=== PATIENT | male | born 1990 | race American Indian/Alaskan Native ===

== ENCOUNTER 2018-06-13 01:30 | Inpatient (IN) | payer MEDICAID, OTHER ==
[2018-06-13 02:19] LABS: Basophils # (Auto) 0.1 K/mm3 (0.0-0.1); Eosinophils # (Auto) 0.3 K/mm3 (0.0-0.4); Eosinophils % (Auto) 3.7 % (0.0-4.3); Monocytes # (Auto) 0.5 K/mm3 (0.0-0.8); Monocytes % (Auto) 6.7 % (0.0-7.3)
[2018-06-13 02:25] LABS: Bilirubin,Urine NEG (Negative); Blood,Urine NEG (Negative); Color,Urine Straw (Yellow); Protein,Urine <15 mg/dL mg/dL (Negative); Urobilinogen,Urine < 2.0 mg/dL (<2.0)
[2018-06-13 02:36] LABS: Hemolysis Index 153
[2018-06-13 02:45] LABS: Blood Urea Nitrogen 13 mg/dL (9-20)
[2018-06-13 03:01] LABS: BUN/Creatinine Ratio 26
[2018-06-13] MEDS ORDERED: NACL 0.9% 1000 ML 1,000 ML IV ONE ×2 (03:06→04:12)
--- NOTE | 2018-06-13 03:19 | Emergency Department Report ---
HPI - General Chief Complaint: Hyperglycemia Time Seen by Provider: 06/13/18 03:00 - HPI HPI: Room 2 The patient is a 27-year-old male presenting with a chief complaint of polyuria and polydipsia. The patient states he experienced polyuria and polydipsia for the past 3-4 days so his grandmother decided to check his blood sugar. The patient's blood sugar was found to be elevated at 589 yesterday. Patient denies any recent steroid use. Patient complains of just feeling weak. Patient states his last meal occurred at 10:00 this morning Location: [See above] Duration: 3-4 days Quality: Weakness Severity: Moderate Modifying factors: [see above] Context: [see above] Mode of transportation: [not driving] ED Past Medical Hx - Past Medical History Previous Medical History?: No - Surgical History Past Surgical History?: No - Family History Family history: no significant - Social History Smoking Status: Current Every Day Smoker Substance Use Type: None (denies illicit drug use), Alcohol (occasional) - Medications Home Medications: Home Medications Medication Instructions Recorded Confirmed Last Taken Type No Known Home Medications [No 06/13/18 06/13/18 Unknown History Reported Home Medications] ED Review of Systems ROS: Stated complaint: BLOOD SUGAR HIGH/BREAKOUT ON ARM/CHEST/LEGS Other details as noted in HPI Constitutional: weakness Eyes: denies: eye pain ENT: denies: throat pain Respiratory: no symptoms reported Cardiovascular: denies: chest pain Endocrine: increased thirst, increased urine Gastrointestinal: denies: abdominal pain Genitourinary: denies: dysuria Musculoskeletal: denies: back pain Neurological: headache Physical Exam - Physical Exam Vital Signs: Vital Signs 06/13/18 01:42 Temperature 97.5 F L Pulse Rate 85 Respiratory 16 Rate Blood Pressure 160/90 O2 Sat by Pulse 96 Oximetry Physical Exam: GENERAL: The patient is well-developed well-nourished male lying on stretcher not appearing to be in acute distress. [] HEENT: Normocephalic. Atraumatic. Extraocular motions are intact. Patient has moist mucous membranes. NECK: Supple. Trachea midline CHEST/LUNGS: Clear to auscultation. There is no respiratory distress noted. HEART/CARDIOVASCULAR: Regular. There is no tachycardia. There is no gallop rub or murmur. ABDOMEN: Abdomen is soft, nontender. Patient has normal bowel sounds. There is no abdominal distention. SKIN: There is no rash. There is no edema. There is no diaphoresis. NEURO: The patient is awake, alert, and oriented. The patient is cooperative. The patient has normal speech MUSCULOSKELETAL: There is no evidence of acute injury. ED Course Vital Signs 06/13/18 01:42 Temperature 97.5 F L Pulse Rate 85 Respiratory 16 Rate Blood Pressure 160/90 O2 Sat by Pulse 96 Oximetry ED Medical Decision Making - Lab Data Result diagrams: 06/13/18 02:06 06/13/18 02:06 Laboratory Tests 06/13/18 06/13/18 06/13/18 01:40 02:00 02:06 WBC 6.7 RBC 5.00 Hgb 15.1 Hct 39.9 MCV 80 L MCH 30 MCHC 38 H* RDW 13.1 L Plt Count 184 Lymph % (Auto) 37.5 H [place] % (Auto) 6.7 Eos % (Auto) 3.7 Baso % (Auto) 1.2 Lymph # 2.5 [place] # 0.5 Eos # 0.3 Baso # 0.1 Seg Neutrophils % 48.4 Seg Neutrophils # 3.4 VBG pH Sodium Potassium Chloride Carbon Dioxide Anion Gap BUN Creatinine Estimated GFR BUN/Creatinine Ratio Glucose POC Glucose 341 H Calcium Total Bilirubin Direct Bilirubin Indirect Bilirubin AST ALT Alkaline Phosphatase Total Protein Albumin Albumin/Globulin Ratio Urine Color Straw Urine Turbidity Clear Urine pH 6.0 Ur Specific [place] 1.027 Urine Protein <15 mg/dl Urine Glucose (UA) >=500 Urine Ketones Tr Urine Blood Neg Urine Nitrite Neg Urine Bilirubin Neg Urine Urobilinogen < 2.0 Ur Leukocyte Esterase Neg Urine WBC (Auto) 1.0 Urine RBC (Auto) 2.0 U Epithel Cells (Auto) < 1.0 06/13/18 06/13/18 06/13/18 02:06 02:06 02:06 WBC RBC Hgb Hct MCV MCH MCHC RDW Plt Count Lymph % (Auto) [place] % (Auto) Eos % (Auto) Baso % (Auto) Lymph # [place] # Eos # Baso # Seg Neutrophils % Seg Neutrophils # VBG pH 7.359 Sodium 120 L Potassium 3.9 Chloride 84.0 L Carbon Dioxide 22 Anion Gap 18 BUN 13 Creatinine 0.5 L Estimated GFR > 60 BUN/Creatinine Ratio 26 Glucose 367 H POC Glucose Calcium 6.0 L Total Bilirubin 0.20 Direct Bilirubin 0.7 H Indirect Bilirubin -0.5 AST 5 ALT 43 Alkaline Phosphatase 114 Total Protein 6.3 Albumin 3.6 L Albumin/Globulin Ratio 1.3 Urine Color Urine Turbidity Urine pH Ur Specific [place] Urine Protein Urine Glucose (UA) Urine Ketones Urine Blood Urine Nitrite Urine Bilirubin Urine Urobilinogen Ur Leukocyte Esterase Urine WBC (Auto) Urine RBC (Auto) U Epithel Cells (Auto) 06/13/18 04:23 WBC RBC Hgb Hct MCV MCH MCHC RDW Plt Count Lymph % (Auto) [place] % (Auto) Eos % (Auto) Baso % (Auto) Lymph # [place] # Eos # Baso # Seg Neutrophils % Seg Neutrophils # VBG pH Sodium Potassium Chloride Carbon Dioxide Anion Gap BUN Creatinine Estimated GFR BUN/Creatinine Ratio Glucose POC Glucose 332 H Calcium Total Bilirubin Direct Bilirubin Indirect Bilirubin AST ALT Alkaline Phosphatase Total Protein Albumin Albumin/Globulin Ratio Urine Color Urine Turbidity Urine pH Ur Specific [place] Urine Protein Urine Glucose (UA) Urine Ketones Urine Blood Urine Nitrite Urine Bilirubin Urine Urobilinogen Ur Leukocyte Esterase Urine WBC (Auto) Urine RBC (Auto) U Epithel Cells (Auto) - Differential Diagnosis new-onset diabetes, DKA, dehydration Critical care attestation.: If time is entered above; I have spent that time in minutes in the direct care of this critically ill patient, excluding procedure time. ED Disposition Clinical Impression: Diabetes mellitus, new onset, Hyponatremia Disposition: OP ADMIT IP TO THIS HOSP Is pt being admited?: Yes Does the pt Need Aspirin: No Condition: Fair Instructions: Diabetes Mellitus Type 2 in Adults (ED) Time of Disposition: 06:05 (hospitalist paged (Dr. Patricia Morgan))
[2018-06-13 03:39] LABS: Albumin 3.6 g/dL (3.9-5); Bilirubin,Direct 0.7 mg/dL (0-0.2)
[2018-06-13 04:08] LABS: Mean Corpuscular Volume 80 fl (84-94); Platelet Count 184 K/mm3 (140-440); Red Cell Distribution Width 13.1 % (13.2-15.2)
[2018-06-13 04:32] LABS: Hematocrit 39.9 % (35.5-45.6); Hemoglobin 15.1 gm/dl (11.8-15.2)
[2018-06-13 04:36] LABS: Lymphocytes % (Auto) 37.5 % (13.4-35.0); Mean Corpuscular HGB Conc 38 % (32-34)
[2018-06-13 04:37] LABS: Basophils % (Auto) 1.2 % (0.0-1.8); Lymphocytes # (Auto) 2.5 K/mm3 (1.2-5.4)
[2018-06-13 05:39] LABS: Eosinophils # (Auto) 0.2 K/mm3 (0.0-0.4)
[2018-06-13 05:54] LABS: Hemolysis Index 157
[2018-06-13 06:04] LABS: BUN/Creatinine Ratio 70; Blood Urea Nitrogen 14 mg/dL (9-20)
[2018-06-13 06:09] LABS: Basophils # (Auto) 0.1 K/mm3 (0.0-0.1); Monocytes # (Auto) 0.5 K/mm3 (0.0-0.8); Monocytes % (Auto) 10.2 % (0.0-7.3)
[2018-06-13 06:28] LABS: Mean Corpuscular Volume 81 fl (84-94); Platelet Count 122 K/mm3 (140-440); Red Blood Count 3.05 M/mm3 (3.65-5.03)
[2018-06-13] MEDS ORDERED: TYLENOL PO PRN (06:28)
[2018-06-13] MEDS ORDERED: SODIUM CHLORIDE FLUSH SYRINGE 10 ML IV PRN (06:28)
[2018-06-13] MEDS ORDERED: D50W (25GM) Syringe IV PRN (06:28)
[2018-06-13] MEDS ORDERED: ZOFRAN IV PRN (06:28)
--- NOTE | 2018-06-13 06:28 | History and Physical Report ---
History of Present Illness Date of examination: 06/13/18 History of present illness: 27-year-old man with no medical problems comes emergency room with complaints of polyuria, polydipsia 4 days. Also complaining of generalized weakness, his grandmother took his sugar and it was 589, he came to the emergency room for f urther evaluation. Review of systems Constitutional: no weight loss, chills, fever Ears, eyes, nose, mouth and throat: no nasal congestion, no nasal discharge, no sinus pressure, no vision change, no red eye. Neck: No neck pain or rigidity. Cardiovascular: no palpitations, chest pain Respiratory: no cough, shortness of breath Gastrointestinal: no hematochezia, abdominal pain Genitourinary : no frequency , no hematuria Musculoskeletal: no joint swelling or muscle ache Integumentary: no rash, no pruritis Neurological: no parathesias, no focal weakness Endocrine: no cold or heat intolerance, no polyuria or polydipsia Hematologic/Lymphatic: no easy bruising, no easy bleeding, no gland swelling Allergic/Immunologic: no urticaria, no angioedema. PAST MEDICAL HISTORY: None PAST SURGICAL HISTORY: None SOCIAL HISTORY: Drinks areas and shots every other day, refused to quantify,no drugs,+ tobacco FAMILY HISTORY: Hypertension, diabetes Medications and Allergies Allergies Allergy/AdvReac Type Severity Reaction Status Date / Time Penicillins Allergy Hives Verified 06/13/18 01:51 Home Medications Medication Instructions Recorded Confirmed Last Taken Type No Known Home Medications [No 06/13/18 06/13/18 Unknown History Reported Home Medications] Exam - Physical Exam Narrative exam: General Apperance: The patient lying in bed, breathing comfortable HEENT: Normocephalic, atraumatic. Pupils equally round and reactive to light, EOMI, no sclericterus or JVD or thyromegaly or nodule. , no carotid bruit, mucous membranes dry, no exudate or erythema Heart: S1-S2, regular is rhythm Lungs: Clear to auscultation bilaterally, breathing comfortable Abdomen: Positive bowel sounds, soft, nontender, nondistended, no organomegaly Extremities: No edema cyanosis clubbing Skin: no rash, nodule, warm and dry Neuro: cranial nerves 2-12 intact, speech is fluent, motor/sensory intact - Constitutional Vitals: Temp Pulse Resp BP Pulse Ox 99.8 F H 85 25 H 131/70 95 06/13/18 05:42 06/13/18 03:31 06/13/18 03:31 06/13/18 03:31 06/13/18 03:31 Results - Labs CBC & Chem 7: 06/13/18 04:47 06/13/18 04:47 Labs: Abnormal lab results 06/13/18 06/13/18 06/13/18 Range/Units 01:40 02:06 02:06 MCV 80 L (84-94) fl MCHC 38 H* (32-34) % RDW 13.1 L (13.2-15.2) % Lymph % (Auto) 37.5 H (13.4-35.0) % [place] % (Auto) (0.0-7.3) % Eos % (Auto) (0.0-4.3) % Sodium 120 L (137-145) mmol/L Chloride 84.0 L (98-107) mmol/L Carbon Dioxide (22-30) mmol/L Creatinine 0.5 L (0.8-1.5) mg/dL Glucose 367 H (75-100) mg/dL POC Glucose 341 H (70-105) Calcium 6.0 L (8.4-10.2) mg/dL Direct Bilirubin (0-0.2) mg/dL Albumin (3.9-5) g/dL 06/13/18 06/13/18 06/13/18 Range/Units 02:06 04:23 04:47 MCV (84-94) fl MCHC (32-34) % RDW (13.2-15.2) % Lymph % (Auto) (13.4-35.0) % [place] % (Auto) (0.0-7.3) % Eos % (Auto) (0.0-4.3) % Sodium 124 L (137-145) mmol/L Chloride 91.5 L (98-107) mmol/L Carbon Dioxide 21 L (22-30) mmol/L Creatinine < 0.2 L D (0.8-1.5) mg/dL Glucose 383 H (75-100) mg/dL POC Glucose 332 H (70-105) Calcium 8.0 L D (8.4-10.2) mg/dL Direct Bilirubin 0.7 H (0-0.2) mg/dL Albumin 3.6 L (3.9-5) g/dL 06/13/18 Range/Units 04:47 MCV (84-94) fl MCHC (32-34) % RDW (13.2-15.2) % Lymph % (Auto) (13.4-35.0) % [place] % (Auto) 10.2 H (0.0-7.3) % Eos % (Auto) 5.0 H (0.0-4.3) % Sodium (137-145) mmol/L Chloride (98-107) mmol/L Carbon Dioxide (22-30) mmol/L Creatinine (0.8-1.5) mg/dL Glucose (75-100) mg/dL POC Glucose (70-105) Calcium (8.4-10.2) mg/dL Direct Bilirubin (0-0.2) mg/dL Albumin (3.9-5) g/dL Assessment and Plan Assessment New-onset DKA Hyponatremia Thrombocytopenia Alcohol abuse Plan Start IV fluid, Lantus, insulin sliding scale Check fingersticks, hemoglobin A1c consult dietary Start CIWA protocol, follow BMP, DVT prophylaxis
[2018-06-13 06:30] LABS: Hematocrit 24.7 % (35.5-45.6); Hemoglobin 9.3 gm/dl (11.8-15.2)
[2018-06-13] MEDS ORDERED: LANTUS SUB-Q ONE (06:32)
[2018-06-13 06:33] LABS: Mean Corpuscular HGB Conc 38 % (32-34)
[2018-06-13] MEDS ORDERED: ATIVAN IV PRN ×2 (06:35)
[2018-06-13] MEDS ORDERED: LANTUS SUB-Q SCH ×2 (07:00→22:00)
[2018-06-13 07:32] LABS: Basophils # (Auto) 0.1 K/mm3 (0.0-0.1); Basophils % (Auto) 1.9 % (0.0-1.8); Eosinophils # (Auto) 0.2 K/mm3 (0.0-0.4); Eosinophils % (Auto) 3.3 % (0.0-4.3); Lymphocytes # (Auto) 2.2 K/mm3 (1.2-5.4); Lymphocytes % (Auto) 39.5 % (13.4-35.0); Monocytes # (Auto) 0.4 K/mm3 (0.0-0.8); Monocytes % (Auto) 6.4 % (0.0-7.3); Platelet Count 207 K/mm3 (140-440); Red Cell Distribution Width 13.3 % (13.2-15.2)
--- NOTE | 2018-06-13 07:32 | XRay Report ---
FINAL REPORT PROCEDURE: XR CHEST 1V AP TECHNIQUE: Chest radiograph anteroposterior view. CPT 63713 HISTORY: low grade temp COMPARISON: No prior studies are available for comparison. FINDINGS: Heart: Normal. Mediastinum/Vessels: Normal. Lungs/Pleural space: Normal. Bony thorax: No acute osseous abnormality. Life support devices: None. IMPRESSION: No acute cardiopulmonary abnormality.
[2018-06-13 08:26] LABS: Hemoglobin 17.6 gm/dl (11.8-15.2)
[2018-06-13 09:13] LABS: Hematocrit 33.7 % (35.5-45.6); Mean Corpuscular Volume 80 fl (84-94)
[2018-06-13 09:15] LABS: Mean Corpuscular HGB Conc 41 % (32-34)
[2018-06-13] MEDS: HumaLOG SUB-Q SCH ×5 (09:28→23:22)
[2018-06-13 09:30] LABS: Basophils % (Manual) 0 % (0.0-1.8); Total Cells Counted 100
[2018-06-13 09:32] LABS: Anisocytosis 1+
[2018-06-13 09:33] LABS: Platelet Estimate Consistent w Auto; Poikilocytosis 1+
[2018-06-13] MEDS ORDERED: GLUCOPHAGE PO SCH (10:00)
[2018-06-13] MEDS ORDERED: LOVENOX SUB-Q SCH (10:00)
[2018-06-13] MEDS: NACL 0.9% 1000 ML 1,000 ML IV SCH ×2 (12:00→20:36)
[2018-06-13] MEDS: SODIUM CHLORIDE FLUSH SYRINGE 10 ML IV SCH ×2 (12:03→22:00)
[2018-06-13 14:06] LABS: Hemolysis Index 153
[2018-06-13 14:48] LABS: Blood Urea Nitrogen 12 mg/dL (9-20); Calcium 5.1 mg/dL (8.4-10.2)
[2018-06-13 14:49] LABS: BUN/Creatinine Ratio 24
[2018-06-14] MEDS: NACL 0.9% 1000 ML 1,000 ML IV SCH ×3 (05:40→23:47)
[2018-06-14 06:45] LABS: Eosinophils # (Auto) 0.2 K/mm3 (0.0-0.4); Eosinophils % (Auto) 3.9 % (0.0-4.3); Monocytes # (Auto) 0.4 K/mm3 (0.0-0.8); Monocytes % (Auto) 7.8 % (0.0-7.3)
[2018-06-14 06:59] LABS: Hemolysis Index 144
[2018-06-14 07:11] LABS: Blood Urea Nitrogen 10 mg/dL (9-20)
[2018-06-14 07:39] LABS: Hematocrit 35.2 % (35.5-45.6); Hemoglobin 14.8 gm/dl (11.8-15.2); Mean Corpuscular Volume 75 fl (84-94); Platelet Count 128 K/mm3 (140-440); Red Blood Count 4.71 M/mm3 (3.65-5.03); Red Cell Distribution Width 20.1 % (13.2-15.2)
[2018-06-14 07:44] LABS: Mean Corpuscular HGB Conc 42 % (32-34)
[2018-06-14] MEDS: HumaLOG SUB-Q SCH ×4 (08:16→23:48)
[2018-06-14 08:27] LABS: Calcium 6.2 mg/dL (8.4-10.2)
[2018-06-14 08:54] LABS: Basophils % (Manual) 0 % (0.0-1.8); Monocytes % (Manual) 0 % (0.0-7.3); Total Cells Counted 100
[2018-06-14 08:56] LABS: Anisocytosis 1+; Platelet Estimate Consistent w Auto; Poikilocytosis 1+
[2018-06-14 08:58] LABS: BUN/Creatinine Ratio 20
[2018-06-14] MEDS: SODIUM CHLORIDE FLUSH SYRINGE 10 ML IV SCH ×2 (11:20→23:48)
--- NOTE | 2018-06-14 12:04 | Progress Note ---
Assessment and Plan Assessment and plan: 27-year-old man with no medical problems comes emergency room with complaints of polyuria, polydipsia 4 days. Also complaining of generalized weakness, his grandmother took his sugar and it was 589, he came to the emergency room for further evaluation. Problems New-onset DKA New onset DM type 2, a1c 11.2 Hyponatremia Thrombocytopenia, mild Alcohol abuse Low calcium Plan continue sq insulins cont NS Outpatient hematology fup was counseled on etoh cessation, cont ciwa protocol replete calcium, check vitamin D level History Interval history: Review of systems Constitutional: No fevers, no malaise, no joint pains CVS: No chest pain, no orthopnea, no dyspnea on exertion, no pedal edema GI: No abdominal pain, no diarrhea, no vomiting, no constipation Respiratory: No shortness of breath, no wheezing, no coughing Hospitalist Physical - Physical exam Narrative exam: General.: Appears well, no distress, nontoxic HEENT: Moist mucous membranes, extraocular muscles intact, no lymphadenopathy Neck: supple Cardiac: S1-S2 heard Lungs: clear to auscultation bilaterally Abdomen: soft , nontender, nondistended, bowel sounds positive Extremities: no edema clubbing or cyanosis Skin: no rash or lesions Neurologic: no gross focal deficits Psych: calm, and cooperative - Constitutional Vitals: Temp Pulse Resp BP Pulse Ox 98.4 F 79 20 142/86 97 06/14/18 11:36 06/14/18 11:36 06/14/18 11:36 06/14/18 11:36 06/14/18 11:36 Results - Labs CBC & Chem 7: 06/14/18 06:10 06/14/18 06:10 Labs: Laboratory Last Values WBC 3.5 K/mm3 (4.5-11.0) L 06/14/18 06:10 RBC 4.71 M/mm3 (3.65-5.03) 06/14/18 06:10 Hgb 14.8 gm/dl (11.8-15.2) 06/14/18 06:10 Hct 35.2 % (35.5-45.6) L 06/14/18 06:10 MCV 75 fl (84-94) L 06/14/18 06:10 MCH 31 pg (28-32) 06/14/18 06:10 MCHC 42 % (32-34) H* 06/14/18 06:10 RDW 20.1 % (13.2-15.2) H 06/14/18 06:10 Plt Count 128 K/mm3 (140-440) L 06/14/18 06:10 Lymph % (Auto) Spout Worker 06/14/18 06:10 [place] % (Auto) 7.8 % (0.0-7.3) H 06/14/18 06:10 Eos % (Auto) 3.9 % (0.0-4.3) 06/14/18 06:10 Baso % (Auto) Spout Worker 06/14/18 06:10 Lymph # Spout Worker 06/14/18 06:10 [place] # 0.4 K/mm3 (0.0-0.8) 06/14/18 06:10 Eos # 0.2 K/mm3 (0.0-0.4) 06/14/18 06:10 Baso # 0.0 K/mm3 (0.0-0.1) 06/14/18 06:10 Add Manual Diff Complete 06/14/18 06:10 Total Counted 100 06/14/18 06:10 Seg Neutrophils % 54.2 % (40.0-70.0) 06/14/18 06:10 Seg Neuts % (Manual) 83.0 % (40.0-70.0) H 06/14/18 06:10 Band Neutrophils % 0 % 06/14/18 06:10 Lymphocytes % (Manual) 11.0 % (13.4-35.0) L 06/14/18 06:10 Reactive Lymphs % (Man) 0 % 06/14/18 06:10 Monocytes % (Manual) 0 % (0.0-7.3) 06/14/18 06:10 Eosinophils % (Manual) 6.0 % (0.0-4.3) H 06/14/18 06:10 Basophils % (Manual) 0 % (0.0-1.8) 06/14/18 06:10 Metamyelocytes % 0 % 06/14/18 06:10 Myelocytes % 0 % 06/14/18 06:10 Promyelocytes % 0 % 06/14/18 06:10 Blast Cells % 0 % 06/14/18 06:10 Nucleated RBC % Not Reportable 06/14/18 06:10 Seg Neutrophils # 2.6 K/mm3 (1.8-7.7) 06/14/18 06:10 Seg Neutrophils # Man 2.9 K/mm3 (1.8-7.7) 06/14/18 06:10 Band Neutrophils # 0.0 K/mm3 06/14/18 06:10 Lymphocytes # (Manual) 0.4 K/mm3 (1.2-5.4) L 06/14/18 06:10 Abs React Lymphs (Man) 0.0 K/mm3 06/14/18 06:10 Monocytes # (Manual) 0.0 K/mm3 (0.0-0.8) 06/14/18 06:10 Eosinophils # (Manual) 0.2 K/mm3 (0.0-0.4) 06/14/18 06:10 Basophils # (Manual) 0.0 K/mm3 (0.0-0.1) 06/14/18 06:10 Metamyelocytes # 0.0 K/mm3 06/14/18 06:10 Myelocytes # 0.0 K/mm3 06/14/18 06:10 Promyelocytes # 0.0 K/mm3 06/14/18 06:10 Blast Cells # 0.0 K/mm3 06/14/18 06:10 WBC Morphology Not Reportable 06/14/18 06:10 Hypersegmented Neuts Not Reportable 06/14/18 06:10 Hyposegmented Neuts Not Reportable 06/14/18 06:10 Hypogranular Neuts Not Reportable 06/14/18 06:10 Smudge Cells Not Reportable 06/14/18 06:10 Toxic Granulation Not Reportable 06/14/18 06:10 Toxic Vacuolation Not Reportable 06/14/18 06:10 Dohle Bodies Not Reportable 06/14/18 06:10 Pelger-Huet Anomaly Not Reportable 06/14/18 06:10 Alisa Rods Not Reportable 06/14/18 06:10 Platelet Estimate Consistent w auto 06/14/18 06:10 Clumped Platelets Not Reportable 06/14/18 06:10 Plt Clumps, EDTA Not Reportable 06/14/18 06:10 Large Platelets Not Reportable 06/14/18 06:10 Giant Platelets Not Reportable 06/14/18 06:10 Platelet Satelliting Not Reportable 06/14/18 06:10 Plt Morphology Comment Not Reportable 06/14/18 06:10 RBC Morphology Not Reportable 06/14/18 06:10 Dimorphic RBCs Not Reportable 06/14/18 06:10 Polychromasia Not Reportable 06/14/18 06:10 Hypochromasia Not Reportable 06/14/18 06:10 Poikilocytosis 1+ 06/14/18 06:10 Anisocytosis 1+ 06/14/18 06:10 Microcytosis Not Reportable 06/14/18 06:10 Macrocytosis Not Reportable 06/14/18 06:10 Spherocytes Not Reportable 06/14/18 06:10 Pappenheimer Bodies Not Reportable 06/14/18 06:10 Sickle Cells Not Reportable 06/14/18 06:10 Target Cells Not Reportable 06/14/18 06:10 Tear Drop Cells Not Reportable 06/14/18 06:10 Ovalocytes Not Reportable 06/14/18 06:10 Helmet Cells Not Reportable 06/14/18 06:10 [place] Bodies Not Reportable 06/14/18 06:10 [place] Rings Not Reportable 06/14/18 06:10 [place] Cells Not Reportable 06/14/18 06:10 Bite Cells Not Reportable 06/14/18 06:10 Crenated Cell Not Reportable 06/14/18 06:10 Elliptocytes Not Reportable 06/14/18 06:10 Acanthocytes (Spur) Not Reportable 06/14/18 06:10 Rouleaux Not Reportable 06/14/18 06:10 Hemoglobin C Crystals Not Reportable 06/14/18 06:10 Schistocytes Not Reportable 06/14/18 06:10 Malaria parasites Not Reportable 06/14/18 06:10 Saad Bodies Not Reportable 06/14/18 06:10 Hem Pathologist Commnt No 06/14/18 06:10 VBG pH 7.359 (7.320-7.420) 06/13/18 02:06 Sodium 125 mmol/L (137-145) L 06/14/18 06:10 Potassium 3.9 mmol/L (3.6-5.0) 06/14/18 06:10 Chloride 90.9 mmol/L (98-107) L 06/14/18 06:10 Carbon Dioxide 21 mmol/L (22-30) L 06/14/18 06:10 Anion Gap 17 mmol/L 06/14/18 06:10 BUN 10 mg/dL (9-20) 06/14/18 06:10 Creatinine 0.5 mg/dL (0.8-1.5) L 06/14/18 06:10 Estimated GFR > 60 ml/min 06/14/18 06:10 BUN/Creatinine Ratio 20 % 06/14/18 06:10 Glucose 258 mg/dL (75-100) H 06/14/18 06:10 POC Glucose 268 (70-105) H 06/14/18 11:41 Hemoglobin A1c 11.2 % (4-6) H 06/13/18 06:42 Calcium 6.2 mg/dL (8.4-10.2) L D 06/14/18 06:10 Total Bilirubin 0.20 mg/dL (0.1-1.2) 06/13/18 02:06 Direct Bilirubin 0.7 mg/dL (0-0.2) H 06/13/18 02:06 Indirect Bilirubin -0.5 mg/dL 06/13/18 02:06 AST 5 units/L (5-40) 06/13/18 02:06 ALT 43 units/L (7-56) 06/13/18 02:06 Alkaline Phosphatase 114 units/L (35-129) 06/13/18 02:06 Total Protein 6.3 g/dL (6.3-8.2) 06/13/18 02:06 Albumin 3.6 g/dL (3.9-5) L 06/13/18 02:06 Albumin/Globulin Ratio 1.3 % 06/13/18 02:06 Lipase 39 units/L (13-60) 06/13/18 04:47 Urine Color Straw (Yellow) 06/13/18 02:00 Urine Turbidity Clear (Clear) 06/13/18 02:00 Urine pH 6.0 (5.0-7.0) 06/13/18 02:00 Ur Specific [place] 1.027 (1.003-1.030) 06/13/18 02:00 Urine Protein <15 mg/dl mg/dL (Negative) 06/13/18 02:00 Urine Glucose (UA) >=500 mg/dL (Negative) 06/13/18 02:00 Urine Ketones Tr mg/dL (Negative) 06/13/18 02:00 Urine Blood Neg (Negative) 06/13/18 02:00 Urine Nitrite Neg (Negative) 06/13/18 02:00 Urine Bilirubin Neg (Negative) 06/13/18 02:00 Urine Urobilinogen < 2.0 mg/dL (<2.0) 06/13/18 02:00 Ur Leukocyte Esterase Neg (Negative) 06/13/18 02:00 Urine WBC (Auto) 1.0 /HPF (0.0-6.0) 06/13/18 02:00 Urine RBC (Auto) 2.0 /HPF (0.0-6.0) 06/13/18 02:00 U Epithel Cells (Auto) < 1.0 /HPF (0-13.0) 06/13/18 02:00 Nutrition/Malnutrition Assess - Dietary Evaluation Nutrition/Malnutrition Findings: Nutrition Notes Start: 06/14/18 10:25 Freq: Status: Active Protocol: Document 06/14/18 10:26 SA (Rec: 06/14/18 10:55 [email or web address]) Co-Sign 06/14/18 10:26 OL Nutrition Notes Need for Assessment generated from: MD Order monument carver Education Initial or Follow up Brief Note Current Diagnosis Diabetes Other Pertinent Diagnosis New Onset DKA, Hyponatremia, Thrombocytopenia, alcohol abuse Current Diet [place] Consistent Carbohydrate Labs/Tests Na: 122 Cr: 0.5 Glu: 306 POC: 253 A1C: 11.2 Pertinent Medications Reviewed Height 5 ft 4 in Weight 110.4 kg [place] Body Weight (kg) 59.09 BMI 41.8 Weight Status Morbidly Obese Subjective/Other Information MD consult for diet education. RN screen for new onset of diabetes and skin risk. Skin risk: 23. Patient came to ER after experiencing polyuria and polydipsia x 4 days. Pt admitted to hospital with blood sugar being 589. Patient states being fatigued and experiencing many diabetes symptoms. Educated patient on carbohydrate counting. Patient very motivated to change diet . Burn Absent Trauma Absent #1 Nutrition Diagnosis Food and nutrition-related knowledge deficit Etiology new onset DKA As Evidenced by Signs and Symptoms elavated blood sugar and unaware of medical nutrition therapy for diabetes Is patient on ventilator? No Is Patient Ambulatory and/or Out of Bed Yes REE-([place]. Jeor-ambulatory/OOB) [ 2587.000 [id number]] Kcal/Kg value to use for calculation 18 Approximate Energy Requirements Using 1986 kcal/Kg Calculation Used for Recommendations Kcal/kg Additional Notes Protein: 68- 85 g (0.8-1.0 g/ kg Adj: 84.7kg) Fluid: 1 ml/kcal Nutrition Intervention Change Diet Order: Continue current Teaching Recipient Patient Learning Readiness Good Teaching Methods Discussion Handout Education Handouts Provided Carbohydrate Counting for People with Diabetes Hyperglycemia Barriers to Learning No Barriers RD phone number provided Yes Patient aware of follow up options Yes Goal #1 Diet adherence Revisit per MD consult or patient Sign Off request:
[2018-06-14] MEDS ORDERED: CALCIUM GLUCONATE 2,000 MG in NACL 0.9% 250ML 250 ML IV ONE (13:00)
[2018-06-15] MEDS: NACL 0.9% 1000 ML 1,000 ML IV SCH (07:02)
[2018-06-15] MEDS: HumaLOG SUB-Q SCH ×2 (09:59→11:30)
[2018-06-15] MEDS: SODIUM CHLORIDE FLUSH SYRINGE 10 ML IV SCH (09:59)
[2018-06-15 10:06] LABS: Hemolysis Index 183
[2018-06-15 10:16] LABS: BUN/Creatinine Ratio 35; Blood Urea Nitrogen 7 mg/dL (9-20)
[2018-06-15 10:54] LABS: Calcium 8.8 mg/dL (8.4-10.2)
[2018-06-15 11:22] VITALS: BP 148/90
--- NOTE | 2018-06-15 17:54 | Discharge Summary ---
Providers - Providers Date of Admission: 06/13/18 06:28 Attending physician: HORACE CHIANG MD 06/13/18 06:29 Consult to Dietitian/Nutrition [CONS] Routine Physician Instructions: Reason For Exam: Reason for Consult: Diet education Primary care physician: WATER TAXI DRIVER Hospitalization Condition: Fair Hospital course: 27 year old man who had been complaining of polyuria and polydipsia at home. He felt very ill, he has a few family members who have diabetes. He use his grandmother's glucometer which showed the glucose above 500 prompting him to come to the hospital. He was diagnosed with hyperglycemia , and new-onset diabetes. He was treated with insulin, IV fluid, electrolyte were repleted. Diagnosis new onset type 2 diabetes with hyperglycemia hyper osmolar nonketotic State Hyponatremia hypocalcemia Disposition: TO HOME OR SELFCARE Time spent for discharge: 33 mins Core Measure Documentation - Palliative Care Palliative Care/ Comfort Measures: Not Applicable - Core Measures Any of the following diagnoses?: none Exam - Constitutional Vitals: Temp Pulse Resp BP Pulse Ox 98.1 F 86 20 148/90 97 06/15/18 11:19 06/15/18 11:19 06/15/18 11:19 06/15/18 11:19 06/15/18 11:19 General appearance: Present: no acute distress, well-nourished - EENT Eyes: Present: PERRL ENT: hearing intact, clear oral mucosa - Neck Neck: Present: supple, normal ROM - Respiratory Respiratory effort: normal Respiratory: bilateral: CTA - Cardiovascular Heart Sounds: Present: S1 & S2. Absent: rub, click - Extremities Extremities: pulses symmetrical, No edema Peripheral Pulses: within normal limits - Abdominal General gastrointestinal: Present: soft, non-tender, non-distended, normal bowel sounds Male genitourinary: Present: normal - Integumentary Integumentary: Present: clear, warm, dry - Musculoskeletal Musculoskeletal: gait normal, strength equal bilaterally - Psychiatric Psychiatric: appropriate mood/affect, intact judgment & insight - Neurologic Neurologic: CNII-XII intact, moves all extremities Plan Follow up with: KEVIN CHINCHILLA MD [Referring] - 3-5 Days Prescriptions: Insulin NPH/Regular [NovoLIN 70/30] 10 unit SUB-Q BIDDIAB #1 vial Other Discharge Orders: Glucometer supplies[Amb] Location: None Selected Glucometer (Amb) Location: None Selected
[2018-06-23 08:26] LABS: Vitamin D, 25-OH, D2 SEE SCANNED RESULT
== END 2018-06-15 14:00 | disposition home or self-care (01) | DRG 638 ==
LOC: SUATTDRO 01:30 → ED 01:30 → 3A 06:28
PROVIDERS: ADMIT Internal Medicine; ATTEND Internal Medicine
DX: E11.65 Type 2 diabetes mellitus with hyperglycemia (principal); E87.1 Hypo-osmolality and hyponatremia; D69.6 Thrombocytopenia, unspecified; F10.10 Alcohol abuse, uncomplicated; F17.290 Nicotine dependence, other tobacco product, uncomplicated; Y90.0 Blood alcohol level of less than 20 mg/100 ml; E83.51 Hypocalcemia; Z72.89 Other problems related to lifestyle; Z82.49 Family history of ischemic heart disease and other diseases of the circulatory system; Z83.3 Family history of diabetes mellitus; Z88.0 Allergy status to penicillin; Z71.6 Tobacco abuse counseling
CPT/HCPCS: 36415; 71045; 80048; 80076; 81001; 82306; 82805; 82962; 83036; 83690; 85007; 85025; 96360; 96361; 96372; 99406; G0378; J0610; J1815; J7030; J7050